=== PATIENT | male | born 1995 | race Caucasian/White ===

== ENCOUNTER 2018-12-03 07:18 | Emergency (ER) | payer BC ==
[2018-12-03 07:29] VITALS: BP 111/67
--- NOTE | 2018-12-03 08:02 | UC ---
Respiratory Complaint HPI - HPI Summary HPI Summary: Patient is a 23 -he feels weak and dizzy. He states he needs to lay down her also feel like he's been a pass out. Year-old male with a 3-4 day history of nasal congestion sinus pressure and pain sore throat. He has a very mild headache. He has some mild muscle aches. Had some difficulty swallowing but says his oral intake has been good. Denies any chest pain or shortness of breath. Has had a cough but thinks it is due to his postnasal drip. He denies any nausea vomiting or diarrhea. He denies any earache. He has had very mild myalgias. - History of Current Complaint Chief Complaint: UCRespiratory Stated Complaint: SORE THROAT,CONGESTION Time Seen by Provider: 12/03/18 07:43 Hx Obtained From: Patient Onset/Duration: Gradual Onset, Lasting Days Timing: Constant Severity Initially: Mild Severity Currently: Moderate Pain Intensity: 6 Pain Scale Used: 0-10 Numeric Character: Cough: Nonproductive Aggravating Factors: Nothing Alleviating Factors: Nothing Associated Signs And Symptoms: Positive: Dizziness, URI, Nasal Congestion, Sinus Discomfort - Allergies/Home Medications Allergies/Adverse Reactions: Allergies Allergy/AdvReac Type Severity Reaction Status Date / Time almond Allergy Itching Verified 12/03/18 07:30 lactose Allergy GI Upset Verified 12/03/18 07:30 PEANUTS Allergy THROAT Uncoded 12/03/18 07:30 SCRATCHING, ITCHING Home Medications: Home Medications Ibuprofen [Advil] 400 mg PO ONCE PRN 12/03/18 [History Confirmed 12/03/18] Sertraline HCl [Zoloft] 100 mg PO DAILY 12/03/18 [History Confirmed 12/03/18] guaiFENesin [Mucinex] 1,200 mg PO ONCE PRN 12/03/18 [History Confirmed 12/03/18] PMH/Surg Hx/FS Hx/Imm Hx Previously Healthy: Yes Respiratory History: Asthma - Surgical History Surgical History: None - Family History Known Family History: Positive: Cardiac Disease - mother, father, Hypertension - mother, Diabetes - paternal grandfather - Social History Alcohol Use: Occasionally Substance Use Type: None Substance Use Comment - Amount & Last Used: CBD oil Smoking Status (MU): Never Smoked Tobacco Review of Systems All Other Systems Reviewed And Are Negative: Yes Constitutional: Positive: Fever - emmanuelle, Chills, Fatigue Skin: Positive: Negative Eyes: Positive: Negative ENT: Positive: Sore Throat, Nasal Discharge, Sinus Congestion, Sinus Pain/ Tenderness Respiratory: Positive: Cough Cardiovascular: Positive: Negative Gastrointestinal: Positive: Negative Genitourinary: Positive: Negative Motor: Positive: Negative Neurovascular: Positive: Negative Musculoskeletal: Positive: Negative Neurological: Positive: Headache - mild Psychological: Positive: Negative Physical Exam Triage Information Reviewed: Yes Appearance: Well-Appearing, No Pain Distress, Well-Nourished - BMI 37 Vital Signs: Initial Vital Signs Temp 96.6 F 12/03/18 07:24 Pulse 96 12/03/18 07:24 Resp 18 12/03/18 07:24 BP 111/67 12/03/18 07:24 Pulse Ox 97 12/03/18 07:24 Vital Signs Reviewed: Yes Eyes: Positive: Conjunctiva Clear ENT: Positive: Hearing grossly normal, Pharynx normal, Nasal congestion, TMs normal. Negative: Nasal drainage, Tonsillar swelling, Tonsillar exudate, Trismus, Muffled voice, Hoarse voice, Sinus tenderness, Uvula midline Neck: Positive: Supple, Nontender, No Lymphadenopathy Respiratory: Positive: No respiratory distress, No accessory muscle use, Wheezing - faint end exp wheeze Cardiovascular: Positive: RRR Musculoskeletal: Positive: ROM Intact, No Edema Neurological: Positive: Alert Psychological Exam: Normal Skin Exam: Normal UC Diagnostic Evaluation - Laboratory O2 Sat by Pulse Oximetry: 97 - normal/not hypoxic Diagnostic Studies Comment: influenza (-). strep (-) - EKG Cardiac Rate: NL Cardiac Rhythm: Sinus: Normal Ectopy: None ST Segment: Non-Specific Respiratory Course/Dx - Course Course Of Treatment: Pt became tachycardic and hypotensive sitting. I suggested starting an IV here and sending him to the ER via EMS. He declines. MOM wishes to drive him. Aware of risk of fall and syncope. - Differential Dx/Diagnosis Provider Diagnosis: Near syncope, Orthostatic hypotension, Viral URI Discharge - Sign-Out/Discharge Documenting (check all that apply): Patient Departure All imaging exams completed and their final reports reviewed: No Studies - Discharge Plan Condition: Fair Disposition: AGAINST MEDICAL ADVICE Referrals: Hector Lucas MD [Primary Care Provider] - - Billing Disposition and Condition Condition: FAIR Disposition: Against Medical Advice
== END 2018-12-03 08:41 | disposition left against medical advice (07) ==
LOC: UCEAST 07:18
DX: I95.1 Orthostatic hypotension (principal); J06.9 Acute upper respiratory infection, unspecified; Z82.49 Family history of ischemic heart disease and other diseases of the circulatory system; Z83.3 Family history of diabetes mellitus
CPT/HCPCS: 87651; 93005; 99212; G0463

== ENCOUNTER 2018-12-03 08:57 | Emergency (ER) | payer BC ==
[2018-12-03] MEDS ORDERED: NS 0.9% 1000 ML** 1,000 ML IV ONE ×2 (09:14→09:43)
--- OUTSIDE RECORDS SUMMARY | 2018-12-03 09:37 | XMS REPORT | Continuity of Care Document ---
:1995 External Reference #:[id number] Author Name Evelia Sumner Care Team Providers Name Role Phone Krissy Acevedo M.D. Primary Care Physician Unavailable Payers Type Date Identification Numbers Payment Provider Subscriber Policy Number: [id number] BS Radha VASQUEZ Michelle Lynne PayID: [id number] [address] [address] [place] [id number] Effective: 2012 Policy Number: [id number] TIFF Coe Michelle Rayiban Expires: 2014 PayID: [id number] [address] [address] [place] [id number] Advance Directives Description No Information Available Problems Date Description Provider Status Onset: 05/12/2012 Cluster headache Vika Rodríguez M.D. Active Onset: 05/12/2012 Allergic rhinitis Vika Rodríguez M.D. Active Onset: 12/01/2016 Body mass index 30+ - obesity Hector Lucas M.D.,AJIT Active Onset: 12/01/2016 Gastroesophageal reflux disease Hector Lucas M.D., AJIT Active Onset: 12/01/2016 Generalized social phobia Hector Lucas M.D.,AJIT Active Family History Date Family Member(s) Problem(s) Comments Father Rheumatoid Arthritis Father Leukemia hairy cell, in remission Mother Atrial Fibrillation First Brother Gastroesophageal Reflux Disease (GERD) Social History Type Date Description Comments Sex Unknown Marital Status Single Lives With Mother And Father Occupation Currently Working ETOH Use 12/01/2016 Denies alcohol use Tobacco Use Start: Unknown Patient has never smoked Recreational Drug Use Denies Drug Use Smoking Status Reviewed: 11/22/18 Patient has never smoked Exercise Type/Frequency Exercises rarely Allergies, Adverse Reactions, Alerts Description No Known Drug Allergies Medications Medication Date Status Form Strength Qnty SIG Indications Ordering Provider Sertraline 12/11/ Active Tablets 100mg 30tabs 1 by mouth Krissy HCL 2018 every day MD Kristina Nexium 24HR 12/01/ Active Tablets DR 20mg 1 po qd Hector 2017 [facility] Nasonex 05/12/ Active Suspension 50mcg/Act 2units 1 squirt 477.9 Vika 2011 intranasal Rodríguez, every day M.D. morning CBD Oil / Active Capsules Unknown 0000 Claritin / Active Capsules 10mg 1 by mouth Unknown 0000 every day Zyrtec / Active Tablets 10mg once a day Unknown Allergy 0000 for allergies otc Lactaid / Active Tablets 3000Unit 1 cap with Unknown 0000 meals Doxycycline 04/15/ Hx Tablets 100mg 2tabs 2 tabs PO x Hector Hyclate 2018 - 1 dose Mathieu Lucas, 04/17/ [facility] 2018 Sertraline 01/15/ Hx Tablets 50mg 60tabs 2 tabs Hector HCL 2017 - every day Mathieu Lucas 12/11/ [facility] 2018 Sertraline 12/01/ Hx Tablets 50mg 60tabs 1/2 qd for Hector HCL 2017 - 2 wks then Mathieu Lucas, by mouth [facility] 2017 every day Sumatriptan 12/08/ Hx Tablets 25mg 10tabs 1 tab at 346.10 Vika Succinate 2012 - the onset Rodríguez, of the M.D. 2016 headache , can repeat it once in 24 hrs Ibuprofen 05/12/ Hx Tablets 800mg 40tabs 1 tab every 844.9 Vika 2011 - 8 hrs as Rodríguez, 06/07/ needed for M.D. [address] / Hx Tablets DR 500mg 60tabs po bid with Unknown 0000 - food 2016 Soma / Hx Tablets 250mg 56tabs take 1 Unknown 0000 - tablet by 12/08/ mouth 4 2013 times a day as needed for pain Immunizations CPT Code Status Date Vaccine Lot # [id number] Given 12/01/2016 Influenza Virus Vaccine, Quadrivalent, Split [id number] Virus, Im Use [id number] Given 12/08/2012 Fluvirin Im [id number] And Older [id number] Vital Signs Date Vital Result Comment 11/22/2018 4:41pm Height 78 inches 6'6" Weight 321.00 lb Heart Rate 116 /min BP Systolic 120 mmHg BP Diastolic 80 mmHg Body Temperature 98.8 F O2 % BldC Oximetry 96 % BMI (Body Mass Index) 37.1 kg/m2 01/15/2017 8:23am Weight 296.00 lb Heart Rate 96 /min BP Systolic Sitting 128 mmHg BP Diastolic Sitting 84 mmHg Respiratory Rate 16 /min Body Temperature 98.0 F O2 % BldC Oximetry 99 % 12/01/2016 8:19am Height 77.5 inches 6'5.50" Weight 296.12 lb Heart Rate 84 /min BP Systolic Sitting 152 mmHg BP Diastolic Sitting 87 mmHg BP Systolic Recheck 118 mmHg BP Diastolic Recheck 82 mmHg Body Temperature 97.3 F O2 % BldC Oximetry 98 % BMI (Body Mass Index) 34.7 kg/m2 12/08/2012 2:59pm Height 77.50 inches 6'5.50" Weight 290.75 lb Heart Rate 79 /min BP Systolic Sitting 113 mmHg BP Diastolic Sitting 75 mmHg BMI (Body Mass Index) 34.0 kg/m2 05/12/2012 8:55am Height 77.50 inches 6'5.50" Weight 281.00 lb Heart Rate 72 /min BP Systolic Sitting 142 mmHg l BP Diastolic Sitting 78 mmHg l BMI (Body Mass Index) 32.9 kg/m2 Results Test Date Facility Test Result H/L Range Note Lipid Profile 12/04/2016 [facility] Triglycerides 152 mg/dL N 1, 2 (Trig/Chol/HDL) [address] [place] [address] [phone] Cholesterol 171 mg/dL N 3 HDL Cholesterol 35.6 mg/dL N 4 LDL Cholesterol 105 mg/dL N 5 Laboratory test finding 12/04/2016 [facility] Glucose 90 mg/dL N 70-[address] [place] [address] [phone] TSH (Thyroid Stim Horm) 1.43 mcIU/mL N 0.34-5.60 7 Vitamin B12 620 pg/mL N 180-914 8 CBC Auto Diff 11/14/2016 [facility] White Blood 10.4 10^3/uL N 3.5-10.[address] [place] [address] [phone] Red Blood Count 5.79 10^6/uL High 4.0-5.4 Hemoglobin 17.1 g/dL N 14.0-18.0 Hematocrit 51 % N 42-52 Mean Corpuscular Volume 87 fL N 80-94 Mean Corpuscular Hemoglobin 30 pg N 27-31 Mean Corpuscular HGB Conc 34 g/dL N 31-36 Red Cell Distribution Width 13 % N 10.5-15 Platelet Count 205 10^3/uL N 150-450 Mean Platelet Volume 10 um3 N 7.4-10.4 Abs Neutrophils 7.5 10^3/uL N 1.5-7.7 Abs Lymphocytes 2.3 10^3/uL N 1.0-4.8 Abs Monocytes 0.5 10^3/uL N 0-0.8 Abs Eosinophils 0.1 10^3/uL N 0-0.6 Abs Basophils 0.1 10^3/uL N 0-0.2 Abs Nucleated RBC 0.02 10^3/uL N Granulocyte % 72.2 % N 38-83 Lymphocyte % 21.9 % Low 25-47 Monocyte % 4.3 % N 1-9 Eosinophil % 0.8 % N 0-6 Basophil % 0.8 % N 0-2 Nucleated Red Blood Cells % 0.2 N Laboratory test 11/14/2016 [facility] Lactic Acid 0.7 mmol/L N 0.5-2.0 9 finding [address] [place] [address] [phone] Comp Metabolic 11/14/2016 [facility] Sodium 135 mmol/L N 133- 145 Panel [address] [place] [address] [phone] Chloride 101 mmol/L N 101-111 Co2 Carbon Dioxide 23 mmol/L N 22-32 Glucose 83 mg/dL N 70-100 Blood Urea Nitrogen 13 mg/dL N 6-24 Creatinine 1.08 mg/dL N 0.67-1.17 BUN/Creatinine Ratio 12.0 N 8-20 Calcium 9.8 mg/dL N 8.6-10.3 Total Protein 7.7 g/dL N 6.4-8.9 Albumin 4.8 g/dL N 3.2-5.2 Globulin 2.9 g/dL N 2-4 Albumin/Globulin Ratio 1.7 N 1-3 Total Bilirubin 0.40 mg/dL N 0.2-1.0 Alkaline Phosphatase 63 U/L N 34-104 Alt 46 U/L N 7-52 Egfr Non- 84.7 N >60 Egfr 109.0 N >60 10 Potassium 4.4 mmol/L N 3.5-5.0 Anion Gap 11 mmol/L N 2-11 Ast 27 U/L N 13-39 Laboratory test finding 11/14/2016 [facility] Lipase 39 U/L N 11.0-82.0 [address] [place] [address] [phone] C Reactive Protein 1.71 mg/L N < 5.00 11 Magnesium 2.2 mg/dL N 1.9-2.7 12 Urinalysis Profile 11/14/2016 [facility] Urine Color Straw N [address] [place] [address] [phone] Urine Appearance Clear N Urine Specific [place] 1.015 N 1.010-1.030 Urine pH 5.0 N 5-9 Urine Urobilinogen Negative N Negative Urine Ketones 2+ Abnormal Negative Urine Protein Negative N Negative Urine Leukocytes Negative N Negative Urine Blood 1+ Abnormal Negative Urine Nitrite Negative N Negative Urine Bilirubin Negative N Negative Urine Glucose Negative N Negative Urine White Blood Cell Absent N Absent Urine Red Blood Cell Trace(0-2/hpf) N Absent Urine Bacteria Absent N Absent 1 PT IS FASTING 2 Desirable <150 Borderline high 150-199 High 200-499 Very High >500 3 Desirable <200 Borderline high 200-239 High >239 4 Low <40 Desirable: 40-60 High: >60 5 Desirable: <100 mg/dL Near Optimal: 100-129 mg/dL Borderline High: 130-159 mg/dL High: 160-189 mg/dL Very High: >189 mg/dL 6 PT IS FASTING 7 PT IS FASTING 8 Normal Range 180 to 914 Indeterminate Range 145 to 180 Deficient Range <145 9 [facility] Severe Sepsis and Septic Shock Management Bundle Measure requires all lactic acids initially measuring >2.0 mmol/L be repeated. 10 Because ethnic data is not always readily available, this report includes an eGFR for both -Americans and non- Americans. The National Kidney Disease Education Program (NKDEP) does not endorse the use of the MDRD equation for patients that are not between the ages of 18 and 70, are , have extremes of body size, muscle mass, or nutritional status, or are non- or non-. According to the National Kidney Foundation, irrespective of diagnosis, the stage of the disease is based on the level of kidney function: Stage Description GFR(mL/min/1.73 m(2)) 1 Kidney damage with normal or decreased GFR 90 2 Kidney damage with mild decrease in GFR 60-89 3 Moderate decrease in GFR 30-59 4 Severe decrease in GFR 15-29 5 Kidney failure <15 (or dialysis) 11 Acute inflammation: >10.00 12 [MG] affected by ICTERUS Procedures Date Code Description Status 05/12/2012 63137 Screening Vision Test Completed Encounters Type Date Location Provider Dx Diagnosis Office Visit 01/15/2017 [facility] Bobby Murdock F40.10 Social phobia, 8:30a Arabella Lucas M.D.,FACP unspecified Rd K21.9 Gastro-esophageal reflux disease without esophagitis Office Visit 12/01/2016 [facility] Internal Hector Murdock K21.9 Gastro-esophageal 8:50a Arabella Lucas M.D.,FACP reflux disease without [address] esophagitis E66.09 Other obesity due to excess calories F40.10 Social phobia, unspecified Z23 Encounter for immunization Office Visit 12/08/2012 3:10p [facility] Internal Vika 346.10 Migraine Common Medicine Karan Rodríguez M.D. W/O Intractable [place] W/O Status Migrainosus v04.81 Need For Prophylactic Vaccination & Inoculation/Influenza Office Visit 05/12/2012 9:00a [facility] Internal Vika 339.00 Cluster Headache Medicine Karan Rodríguez M.D. Syndrome, [place] Unspecified 477.9 Rhinitis Allergic Cause Unspec 844.9 Sprains & Strains Knee & Leg Unspec 847.0 Sprains & Strains Neck Plan of Treatment 11/22/2018 - Krissy Acevedo MDF40.10 Social phobia, xgzsooaokdvM94.1 Generalized anxiety disorderNew Labs:Comp Metabolic Panel, Ordered: 11/22/18TSH (Thyroid Stim Horm), Ordered: 11/22/18Comments:Recommended reading: Any CBT workbook from Dr. Lux Mind Over MoodE66.9 Obesity, unspecifiedComments:you should eat low carb on a regular basisFollow up:physical in 6 [id number] Encounter for screening for infections with a predominantlyNew Labs:HIV 1/2 AB Evaluation, Ordered: 11/22/18GC/Chlamydia Amplified Rna, Ordered: 11/22/yphillis Igg W/ Reflex RPR, Ordered: 11/22/18
--- NOTE | 2018-12-03 10:21 | ED ---
Syncope/Near Syncope - HPI Summary HPI Summary: URI sx x 5 days. Started as sinus pressure, nasal congestion, ST dry cough. Subjective fever and intermittent nausea but no vomiting, ab pain or diarrhea - no rash. 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 Was seen at today and tested neg for flu/strep. Had a near syncopal episode after standing and found to have orthostatic hypotension - ECG NSR w/o abnormality. Was advised to come here via ambulance but signed out AMA and arrived via PC w/ parents. Admits he gets dizzy with transition from sitting to standing typically but worse today. ETOH occasionally, no nicotine, denies illicit drug use. No recent dehydration to recall but may have overdone it at work this week during illness. - History Of Current Complaint Chief Complaint: EDDizziness Time Seen by Provider: 12/03/18 09:13 Hx Obtained From: Patient, Family/Weatherization Technician - mom, dad - Allergies/Home Medications Allergies/Adverse Reactions: Allergies Allergy/AdvReac Type Severity Reaction Status Date / Time almond Allergy Itching Verified 12/03/18 07:30 lactose Allergy GI Upset Verified 12/03/18 07:30 PEANUTS Allergy THROAT Uncoded 12/03/18 07:30 SCRATCHING, ITCHING Home Medications: Home Medications Cannabidiol (CBD) Extract (NF) [Epidiolex] 15 mg PO DAILY 12/03/18 [History Confirmed 12/03/18] PMH/Surg Hx/FS Hx/Imm Hx Previously Healthy: Yes Endocrine/Hematology History: Denies: Hx Diabetes, Hx Thyroid Disease, Hx Anemia, Autoimmune Disease Cardiovascular History: Reports: Other Cardiovascular Problems/Disorders - subjective orthostatic hypotension, intermittent/not formally dx'd or tx'd Denies: Hx Congenital Heart Disease, Hx Hypercholesterolemia, Hx Hypertension , Hx Valvular Heart Disease Respiratory History: Denies: Hx Asthma, Hx Chronic Obstructive Pulmonary Disease (COPD) GI History: Denies: Hx Ulcer Neurological History: Reports: Hx Headaches Infectious Disease History: No Infectious Disease History: Denies: Hx Clostridium Difficile, Hx Hepatitis, Hx Human Immunodeficiency Virus (HIV), Hx of Known/Suspected MRSA, Hx Shingles, Hx Tuberculosis, Traveled Outside the [place] in Last 30 Days - Family History Known Family History: Positive: Cardiac Disease - mother, father, Hypertension - mother, Diabetes - paternal grandfather - Social History Occupation: Employed Full-time Lives: With Family Alcohol Use: Occasionally Hx Substance Use: No Substance Use Type: Reports: None Substance Use Comment - Amount & Last Used: CBD oil Hx Tobacco Use: No Smoking Status (MU): Never Smoked Tobacco Review of Systems Positive: Fever, Fatigue Eyes: Negative ENT: Other - URI sx Cardiovascular: Negative Respiratory: Negative Gastrointestinal: Negative Genitourinary: Negative Musculoskeletal: Negative Skin: Negative Neurological: Other - dizziness Negative: Headache, Weakness, Paresthesia, Numbness, Syncope, Slurred Speech Psychological: Normal All Other Systems Reviewed And Are Negative: Yes Physical Exam Triage Information Reviewed: Yes Vital Signs On Initial Exam: Initial Vitals Temp Pulse Resp BP Pulse Ox 97.3 F 103 18 122/73 97 12/03/18 09:00 12/03/18 09:00 12/03/18 09:00 12/03/18 09:00 12/03/18 09:00 Vital Signs Reviewed: Yes Appearance: Positive: No Pain Distress, Ill-Appearing - appears mildly fatigued - otherwise overall okay, Obese Skin: Positive: Warm, Skin Color Reflects Adequate Perfusion, Dry - no rash Head/Face: Positive: Normal Head/Face Inspection Eyes: Positive: Normal, EOMI, PEARL, Conjunctiva Clear. Negative: Conjunctiva Inflammed, Discharge ENT: Positive: Normal ENT inspection, Hearing grossly normal, Pharynx normal, Nasal congestion - mild, TMs normal, Uvula midline. Negative: Tonsillar swelling, Tonsillar exudate, Trismus, Muffled voice, Sinus tenderness Neck: Positive: Supple, Nontender, No Lymphadenopathy Respiratory/Lung Sounds: Positive: Clear to Auscultation, Breath Sounds Present. Negative: Rales, Rhonchi, Wheezes Cardiovascular: Positive: Normal, RRR, S1, S2. Negative: Murmur, Rub, Leg Edema Left, Leg Edema Right Abdomen Description: Positive: Nontender, No Organomegaly, Soft Bowel Sounds: Positive: Present Musculoskeletal: Positive: Normal, Strength/ROM Intact Neurological: Positive: Normal, Sensory/Motor Intact, Alert, Oriented to Person Place, Time, CN Intact II-III Psychiatric: Positive: Normal AVPU Assessment: Alert - [place] Coma Scale Best Eye Response: 4 - Spontaneous Best Motor Response: 6 - Obeys Commands Best Verbal Response: 5 - Oriented Coma Scale Total: 15 Diagnostics - Vital Signs Vital Signs Temp Pulse Resp BP Pulse Ox 12/03/18 09:23 120 98/68 95 12/03/18 09:20 110 114/66 95 12/03/18 09:18 120 98/68 12/03/18 09:16 95 121/64 95 12/03/18 09:15 101 97 12/03/18 09:00 97.3 F 103 18 122/73 97 - Laboratory Result Diagrams: 12/03/18 10:11 12/03/18 10:11 Lab Statement: Any lab studies that have been ordered have been reviewed, and results considered in the medical decision making process. Re-Evaluation - Re-Evaluation First Eval Change: Improved - pt's sx improved w/ 2 liters of fluids - reports he no longer feels dizziness w/ transitions in movement and energy has improved Course/Dx Course Of Treatment: Elevated WBC w/ neuts and monos - monospot neg. Previous tests today are neg for flu/strep. Mag 1.8 (barely depleted and given hypotension, will avoid replacing). CXR w/o acute findings. Improved w/ 2 L IVF , ibuprofen and rest. Advised rest, supportive care and close f/u w/ PCP to address ongoing baseline orthostatic hypotension. Encouraged to return to ED if danger s/sx present. Pt and parents agrees w/ plan. - Diagnoses Provider Diagnoses: Orthostatic hypotension, Viral syndrome Discharge - Sign-Out/Discharge Documenting (check all that apply): Patient Departure - Discharge Plan Condition: Stable Disposition: HOME Patient Education Materials: Hypotension (ED), Viral Syndrome (ED) Forms: *Work Release Referrals: Hector Lucas MD [Primary Care Provider] - Additional Instructions: Nasal wash (netti pot or saline spray) & salt water throat gargles 2 x day Stay hydrated - Drink plenty of water every day Sleep 8+ hours per night Avoid Dairy and sugar Hot herbal/decaf tea with lemon & honey Chicken broth (preferably organic, free range chicken) Humidifier in house, but especially near bed at night Keep home temperature at 68F or less to reduce dryness Use cough drops/throat lozenges Try a facial steam with or without eucalyptus essential oil or Chester's Vapor rub for congestion Avoid smoke, candles, perfumes, colognes, scented soaps/detergents , air fresheners and cleaning chemicals as these can cause airway irritation and trigger coughing Start Vitamin D3 5000iu and Vitamin C 1000mg during illness Follow-up with PCP Thursday - call today to schedule an appointment for recheck of vitals *If you develop high fever despite acetaminophen/ibuprofe and/or return of symptoms or chest pain, shortness of breath, headache, neck stiffness, return to ED - Billing Disposition and Condition Condition: STABLE Disposition: Home
[2018-12-03 10:29] LABS: ABS Basophils 0 10^3/ul (0-0.2); ABS Eosinophils 0.1 10^3/ul (0-0.6); ABS Lymphocytes 0.9 10^3/ul (1.0-4.8); ABS Monocytes 0.7 10^3/ul (0-0.8); ABS Neutrophils 12.5 10^3/ul (1.5-7.7); ABS Nucleated RBC 0 10^3/ul; Eosinophil % 0.4 %; Hematocrit 44 % (42-52); Hemoglobin 14.9 g/dl (14.0-18.0); Lymphocyte % 6.4 %; Mean Corpuscular HGB Conc 34 g/dl (31-36); Mean Corpuscular Hemoglobin 30 pg (27-31); Mean Corpuscular Volume 87 fL (80-94); Mean Platelet Volume 8.5 fL (7.4-10.4); Nucleated Red Blood Cells % 0; Platelet Count 181 10^3/ul (150-450); Red Blood Count 5.05 10^6/ul (4.00-5.40); Red Cell Distribution Width 12 % (10.5-15); White Blood Count 14.2 10^3/ul (3.5-10.8)
[2018-12-03 10:46] LABS: Albumin 4.1 g/dL (3.2-5.2); Albumin/Globulin Ratio 1.9 (1-3); BUN/Creatinine Ratio 16.5 (8-20); Calcium 8.7 mg/dL (8.6-10.3); EGFR African American 114.1 (>60); EGFR Non-African American 94.3 (>60); Globulin 2.2 g/dL (2-4); Magnesium 1.8 mg/dL (1.9-2.7); Potassium 4.1 mmol/L (3.5-5.0); Total Bilirubin 0.7 mg/dL (0.2-1.0); Total Protein 6.3 g/dL (6.4-8.9)
[2018-12-03 11:42] LABS: TSH (Thyroid Stimulating Horm) 0.81 mcIU/mL (0.34-5.60)
[2018-12-03 11:47] LABS: Urine Appearance Clear; Urine Bacteria Absent (Absent); Urine Bilirubin Negative (Negative); Urine Blood 1+ (Negative); Urine Color Straw; Urine Glucose Negative (Negative); Urine Ketones Negative (Negative); Urine Nitrite Negative (Negative); Urine Protein Negative (Negative); Urine Red Blood Cell Trace(0-2/hpf) (Absent); Urine Specific Gravity 1.006 (1.010-1.030); Urine Urobilinogen Negative (Negative); Urine White Blood Cell Trace(0-5/hpf) (Absent)
[2018-12-03 12:22] VITALS: BP 102/63
== END 2018-12-03 12:23 | disposition home or self-care (01) ==
LOC: ED 08:57
DX: I95.1 Orthostatic hypotension (principal); B34.9 Viral infection, unspecified
CPT/HCPCS: 36415; 71046; 80053; 81003; 81015; 83605; 83735; 84443; 85025; 86308; 87086; 96360; 96361; 99283